=== PATIENT | female | born 1990 | race Two or more races ===

== ENCOUNTER 2017-02-01 12:41 | Emergency (ER) | payer SELFPAY ==
[~2017-02-01] VITALS: Ht 157.5 cm; Wt 54.4 kg
--- NOTE | 2017-02-01 13:00 | NUR ---
TORI CERRATO AT BEDSIDE FOR EVAL.
[2017-02-01 13:15] LABS: APPEARANCE,URINE Clear (CLEAR); BILIRUBIN,URINE Negative (NEGATIVE); BLOOD, URINE Negative Ery/uL (NEGATIVE); COLOR,URINE Yellow (YELLOW); KETONES,URINE Negative (NEGATIVE); LEUKOCYTE ESTERASE ,URINE Negative (NEGATIVE); NITRITE, URINE Negative (NEGATIVE); PROTEIN,URINE Negative (NEGATIVE); UGLUCOSE Negative (NEGATIVE); UROBILINOGEN,URINE 0.2 EU/dL (0.2)
--- NOTE | 2017-02-01 13:16 | NUR ---
U/S TECH AT BEDSIDE FOR PELVIC ULTRASOUND.
[2017-02-01 13:28] LABS: PREGNANCY TEST URINE QUAL NEGATIVE (NEGATIVE)
--- NOTE | 2017-02-01 14:28 | NUR ---
Patient discharged to home in stable condition. Written and verbal after care instructions given. Patient verbalizes understanding of instruction.
[2017-02-01 14:29] VITALS: BP 115/62
[2017-02-03 00:09] LABS: *NEISSERIA GONORRHOEAE NAA Negative (Negative); CHLAMYDIA TRACHOMATIS NAA Negative (Negative)
== END 2017-02-01 14:30 | disposition home or self-care (01) ==
LOC: ER 12:46
DX: R10.2 Pelvic and perineal pain (principal)
CPT/HCPCS: 76856-TC; 81000-TC; 84703-TC; 87491; 87591; A4606; Z7610